=== PATIENT | female | born 1995 | race American Indian/Alaskan Native ===

== ENCOUNTER 2021-03-03 02:02 | Emergency (ER) | payer SELFPAY ==
[2021-03-03 02:17] VITALS: BP 124/60
[2021-03-03 03:28] LABS: Hematocrit 35.4 % (30.3-42.9); Hemoglobin 11.9 gm/dl (10.1-14.3); Mean Corpuscular HGB Conc 34 % (30-34); Mean Corpuscular Volume 93 fl (79-97); Platelet Count 264 K/mm3 (140-440); Red Blood Count 3.83 M/mm3 (3.65-5.03); Red Cell Distribution Width 13.3 % (13.2-15.2)
[2021-03-03 03:34] LABS: Bilirubin,Urine NEG (Negative); Blood,Urine LG (Negative); Color,Urine Red (Yellow); Mucus,Urine FEW /HPF; Urobilinogen,Urine < 2.0 mg/dL (<2.0)
[2021-03-03 03:45] LABS: Basophils # (Auto) 0.1 K/mm3 (0.0-0.1); Basophils % (Auto) 2.6 % (0.0-1.8); Eosinophils % (Auto) 0.3 % (0.0-4.3); Lymphocytes # (Auto) 1.3 K/mm3 (1.2-5.4); Lymphocytes % (Auto) 18.3 % (13.4-35.0); Monocytes # (Auto) 0.2 K/mm3 (0.0-0.8); Monocytes % (Auto) 2.7 % (0.0-7.3)
[2021-03-03 03:46] LABS: RBC,Urine > 182.0 /HPF (0.0-6.0)
--- NOTE | 2021-03-03 08:06 | Emergency Department Report ---
ED Female HPI - General Chief complaint: Vaginal Bleeding Stated complaint: /HEAVY BLEEDING Time Seen by Provider: 03/03/21 07:59 Source: patient Mode of arrival: Ambulatory Limitations: No Limitations - History of Present Illness Initial comments: Patient is 25 years old female with no significant past medical history. Patient presented to the ER stating that she has abnormal vaginal bleeding and her. Was late for 2 to 3 days and she took test the first 1 was negative and the second 1 came back positive. Patient is complaining of cramping lower abdominal pain. Patient denied any fever or chills. No dizziness, shortness of breath or chest pain. Patient stated that she never been before. MD Complaint: vaginal bleeding - Related Data Allergies Allergy/AdvReac Type Severity Reaction Status Date / Time No Known Allergies Allergy Unverified 03/03/21 02:24 ED Review of Systems ROS: Stated complaint: /HEAVY BLEEDING Other details as noted in HPI Comment: All other systems reviewed and negative Constitutional: denies: chills, fever Cardiovascular: denies: chest pain Gastrointestinal: abdominal pain. denies: nausea, vomiting Genitourinary: abnormal menses Musculoskeletal: denies: back pain Neurological: denies: headache, weakness, numbness, paresthesias ED Past Medical Hx - Past Medical History Previous Medical History?: No - Surgical History Past Surgical History?: Yes Additional Surgical History: fibroids - Social History Smoking Status: Never Smoker Substance Use Type: Alcohol ED Physical Exam - General Limitations: No Limitations General appearance: alert, in no apparent distress - Head Head exam: Present: atraumatic, normocephalic, normal inspection - Eye Eye exam: Present: normal appearance - ENT ENT exam: Present: normal exam, normal orophraynx, mucous membranes moist - Neck Neck exam: Present: normal inspection - Respiratory Respiratory exam: Present: normal lung sounds bilaterally - Cardiovascular Cardiovascular Exam: Present: regular rate, normal rhythm, normal heart sounds - GI/Abdominal GI/Abdominal exam: Present: soft, normal bowel sounds. Absent: distended, tenderness, guarding, rebound, rigid, organomegaly, mass, bruit, pulsatile mass, hernia - Extremities Exam Extremities exam: Present: normal inspection, normal capillary refill. Absent: pedal edema - Back Exam Back exam: Present: normal inspection. Absent: CVA tenderness (R), CVA t enderness (L) - Neurological Exam Neurological exam: Present: alert, oriented X3, CN II-XII intact - Psychiatric Psychiatric exam: Present: normal mood - Skin Skin exam: Present: warm, intact, normal color ED Course Vital Signs 03/03/21 02:12 Temperature 98.6 F Pulse Rate 85 Respiratory 20 Rate Blood Pressure 124/60 O2 Sat by Pulse 100 Oximetry ED Medical Decision Making - Lab Data Result diagrams: 03/03/21 02:48 - Medical Decision Making Patient is 25 years old female with no significant past medical history. Patient presented to the ER stating that she has abnormal vaginal bleeding and her. Was late for 2 to 3 days and she took test the first 1 was negative and the second 1 came back positive. Patient is complaining of cramping lower abdominal pain. Patient denied any fever or chills. No dizziness, shortness of breath or chest pain. Patient stated that she never been before. Labs reviewed and is unremarkable. test is negative. Patient symptoms most likely related to dysmenorrhea and advised to follow-up with her process helper in the next 2 to 3 days and to return to the ER if she develop any new symptoms. Critical care attestation.: If time is entered above; I have spent that time in minutes in the direct care of this critically ill patient, excluding procedure time. ED Disposition Clinical Impression: Dysmenorrhea Disposition: - TO HOME OR SELFCARE Is pt being admited?: No Condition: Stable Instructions: Dysmenorrhea Referrals: WICHO LAUREN MD [Staff Physician] - 3-5 Days
== END 2021-03-03 08:24 | disposition home or self-care (01) ==
LOC: ED 02:02
DX: N94.6 Dysmenorrhea, unspecified (principal)
CPT/HCPCS: 36415; 81001; 84702; 84703; 85025; 86900; 86901; 87086; 99283

== ENCOUNTER 2021-10-05 15:20 | Emergency (ER) | payer SELFPAY ==
[2021-10-05 15:29] VITALS: BP 129/85
--- NOTE | 2021-10-05 15:57 | Emergency Department Report ---
ED Female HPI - General Chief complaint: Vaginal Bleeding Stated complaint: 5 DAYS LATE FOR PERIOD, + PREG TEST, CRAMP/BLEEDIN Time Seen by Provider: 10/05/21 15:37 Source: patient Mode of arrival: Ambulatory Limitations: No Limitations - History of Present Illness Initial comments: Patient is a 26-year-old female presents emergency room complaints of late menstrual cycle. Patient states that she is approximately 5 days late for her menstrual cycle. She states that she typically has regular menstrual cycles. She states her last menstrual cycle was 09/03/2021. She states that today she began having some dark brown spotting and some mild lower abdominal cramping. She states that she took a test [id number] and reports that it appeared faintly positive. She has never been before. She denies any fever, nausea, vomiting, diarrhea, dysuria, abnormal vaginal discharge. Past medical history of fibroids. No allergies to medications. - Related Data Previous Rx's Medication Instructions Recorded Last Taken Type Naproxen [Naprosyn] 500 mg PO BID #14 tablet 03/03/21 Unknown Rx Allergies Allergy/AdvReac Type Severity Reaction Status Date / Time No Known Allergies Allergy Verified 10/05/21 15:23 ED Review of Systems ROS: Stated complaint: 5 DAYS LATE FOR PERIOD, + PREG TEST, CRAMP/BLEEDIN Other details as noted in HPI Comment: All other systems reviewed and negative ED Past Medical Hx - Past Medical History Previous Medical History?: No - Surgical History Hx Appendectomy: Yes Additional Surgical History: fibroids - Social History Smoking Status: Never Smoker Substance Use Type: Alcohol - Medications Home Medications: Home Medications Medication Instructions Recorded Confirmed Last Taken Type Naproxen [Naprosyn] 500 mg PO BID #14 tablet 03/03/21 Unknown Rx ED Physical Exam - General Limitations: No Limitations General appearance: alert, in no apparent distress - Head Head exam: Present: atraumatic, normocephalic - Eye Eye exam: Present: normal appearance - ENT ENT exam: Present: mucous membranes moist - Respiratory Respiratory exam: Present: normal lung sounds bilaterally. Absent: respiratory distress, wheezes, rales, rhonchi, stridor, chest wall tenderness, accessory muscle use, decreased breath sounds, prolonged expiratory - Cardiovascular Cardiovascular Exam: Present: regular rate, normal rhythm, normal heart sounds. Absent: systolic murmur, diastolic murmur, rubs, gallop - GI/Abdominal GI/Abdominal exam: Present: soft, normal bowel sounds. Absent: distended, tenderness, guarding, rebound, rigid - Neurological Exam Neurological exam: Present: alert, oriented X3 - Psychiatric Psychiatric exam: Present: normal affect, normal mood - Skin Skin exam: Present: warm, dry, intact ED Course Vital Signs 10/05/21 10/05/21 15:25 15:28 Temperature 98.1 F Pulse Rate 82 Respiratory 16 Rate Blood Pressure 129/85 [Right] O2 Sat by Pulse 100 Oximetry ED Medical Decision Making - Lab Data Result diagrams: 10/05/21 16:17 Lab Results 10/05/21 10/05/21 Range/Units 16:17 16:17 WBC 5.8 (4.5-11.0) K/mm3 RBC 4.18 (3.65-5.03) M/mm3 Hgb 12.3 (10.1-14.3) gm/dl Hct 38.7 (30.3-42.9) % MCV 93 (79-97) fl MCH 30 (28-32) pg MCHC 32 (30-34) % RDW 13.2 (13.2-15.2) % Plt Count 271 (140-440) K/mm3 Lymph % (Auto) 37.7 H (13.4-35.0) % [place] % (Auto) 11.8 H (0.0-7.3) % Eos % (Auto) 2.0 (0.0-4.3) % Baso % (Auto) 0.4 (0.0-1.8) % Lymph # (Auto) 2.2 (1.2-5.4) K/mm3 [place] # (Auto) 0.7 (0.0-0.8) K/mm3 Eos # (Auto) 0.1 (0.0-0.4) K/mm3 Baso # (Auto) 0.0 (0.0-0.1) K/mm3 Seg Neutrophils % 48.1 (40.0-70.0) % Seg Neutrophils # 2.8 (1.8-7.7) K/mm3 HCG, Quant < 2 (0-4) mIU/mL - Medical Decision Making Patient is a 26-year-old female presents emergency room complaints of late menstrual cycle. Patient states that she is approximately 5 days late for her menstrual cycle. She states that she typically has regular menstrual cycles. She states her last menstrual cycle was 09/03/2021. She states that today she began having some dark brown spotting and some mild lower abdominal cramping. She states that she took a test [id number] and reports that it appeared faintly positive. She has never been before. She denies any fever, nausea, vomiting, diarrhea, dysuria, abnormal vaginal discharge. Past medical history of fibroids. No allergies to medications. Vitals are normal. No abdominal tenderness on exam. H&H is normal. hCG quant is less than 2. Discussed all results with patient. Discussed the importance of [employer] [employer] follow- up. Advised patient Follow-up with LICENSED TAX CONSULTANT. Return to emergency room for any new or worsening symptoms. Critical care attestation.: If time is entered above; I have spent that time in minutes in the direct care of this critically ill patient, excluding procedure time. ED Disposition Clinical Impression: Late menstruation Disposition: 01 HOME / SELF CARE / HOMELESS Is pt being admited?: No Does the pt Need Aspirin: No Condition: Stable Additional Instructions: Follow-up with [employer]ED TAX CONSULTANT. Return to emergency room for any new or worsening symptoms. Referrals: PRIMARY CAREMD [Primary Care Provider] - 3-5 Days ZHANNA BENITEZ MD [Staff Physician] - 3-5 Days Time of Disposition: 17:45 Print Language: SERBIAN
[2021-10-05 16:45] LABS: Basophils % (Auto) 0.4 % (0.0-1.8); Eosinophils # (Auto) 0.1 K/mm3 (0.0-0.4); Hematocrit 38.7 % (30.3-42.9); Hemoglobin 12.3 gm/dl (10.1-14.3); Lymphocytes # (Auto) 2.2 K/mm3 (1.2-5.4); Lymphocytes % (Auto) 37.7 % (13.4-35.0); Mean Corpuscular HGB Conc 32 % (30-34); Mean Corpuscular Volume 93 fl (79-97); Monocytes # (Auto) 0.7 K/mm3 (0.0-0.8); Monocytes % (Auto) 11.8 % (0.0-7.3); Platelet Count 271 K/mm3 (140-440); Red Blood Count 4.18 M/mm3 (3.65-5.03); Red Cell Distribution Width 13.2 % (13.2-15.2)
== END 2021-10-05 18:06 | disposition home or self-care (01) ==
LOC: ED 15:20
DX: N92.6 Irregular menstruation, unspecified (principal)
CPT/HCPCS: 36415; 84702; 85025; 99283

== ENCOUNTER 2022-05-16 13:53 | Emergency (ER) | payer SELFPAY ==
[2022-05-16 15:09] VITALS: BP 121/80
[2022-05-16 16:24] LABS: Bilirubin,Urine NEG (Negative); Blood,Urine NEG (Negative); Color,Urine Yellow (Yellow); Protein,Urine <15 mg/dL mg/dL (Negative); Urobilinogen,Urine < 2.0 mg/dL (<2.0)
[2022-05-16 16:30] LABS: Mucus,Urine FEW /HPF
[2022-05-16 16:33] LABS: HCG Qualitative,Urine Negative (Negative)
== END 2022-05-16 18:00 | disposition left against medical advice (07) ==
LOC: ED 13:53
DX: R10.9 Unspecified abdominal pain (principal); R51.9 Headache, unspecified; Z53.21 Procedure and treatment not carried out due to patient leaving prior to being seen by health care provider
CPT/HCPCS: 81001; 81025